=== PATIENT | female | born 1995 | race Caucasian/White ===

== ENCOUNTER 2017-03-12 15:44 | Emergency (ER) | payer SELFPAY ==
[2017-03-12] MEDS ORDERED: KETOROLAC TROMETHAMINE 30 MG/ML VIAL IV ONE (16:17)
[2017-03-12] MEDS ORDERED: NORMAL SALINE 1,000 ML IV ONE (16:17)
--- NOTE | 2017-03-12 16:18 | ERNOTE ---
Abdominal HPI - Narrative Date of Service: 03/12/17 - General Chief Complaint: Abdominal Pain Time Seen by Provider: 03/12/17 16:06 Source: patient, family, RN notes reviewed Exam Limitations: no limitations - Immun/Allergies/Home Medications Immunizatons: IMMUNIZATION HX Immunizations Up to Date Yes History of Influenza Vaccine No Hx Pneumococcal Vaccination No Allergies/Adverse Reactions: Allergies No Known Allergies Allergy (Verified 03/12/17 16:02) Home Medications: HOME MEDICATIONS NK [No Home Medication] 03/12/17 [Last Taken Unknown] - History of Present Illness Narrative: 21 y/o female brought the ED by her mother for abdominal pain that began earlier this afternoon. Her pain is located across her lower abdomen. She denies any associated symptoms. She had been feeling fine until this started today. She reports that it is just like the pain that she had approximately a year ago when she had a pelvic mass that required surgery. She had her right fallopian tube removed and a lysis of adhesions. Date (Duration): 03/12/17 Time (Timing): 14:15 Timing: constant Quality: severe, aching Activities at Onset: none Associated Symptoms: Absent: headache, back pain, diaphoresis, fever/chills, heartburn, nausea, vomiting, shortness of breath, swelling/mass in abdomen Prior Abdominal Problems: Present: similar symptoms Prior Treatment: Absent: recently seen Review of Systems - Review of Systems Constitutional: Absent: recent illness, fever, chills EYE: Present: no symptoms reported ENT: Present: no symptoms reported Respiratory: Absent: shortness of breath, cough Cardiology: Absent: chest pain, palpitations Gastrointestinal/Abdominal: Present: abdominal pain. Absent: nausea, vomiting, diarrhea, constipation Genitourinary: Absent: dysuria, hematuria Musculoskeletal: Absent: back pain, neck pain Skin: Absent: rash, lesions, lumps Neurological: Absent: headache, dizziness/light-headedness Endocrine: Present: no symptoms reported Hematologic/Lymphatic: Present: no symptoms reported Psych: Present: no symptoms reported - Patient's Past Medical History Patient History - Medical: Anemia Patient History - Cardiac/Respiratory: Pneumonia Patient History - Cancer: No Hx of Cancer Patient History - Surgical Procedures: Other - Left knee arthroscopy, diagnostic laproscopy 04/07/16-ruptured r ovarian cyst, r-adenxal/pelvic abscess , r hydrosalpinx, r ovarian cyst, Orthopedic Patient History - Other: None LMP (Calendar): 02/14/17 - Family History Mother Family History - Medical: Other Family History - Cardiac/Respiratory: Other - Social History Living Situations: home Abuse History: No History of abuse Psych History: No pertinent hx Does anyone smoke in the home?: Yes Smoking Status: Current every day smoker Alcohol Use: none Drug Use: none - Immunizations Immunizations Up to Date: Yes Hx Pneumococcal Vaccination: No History of Influenza Vaccine: No Physical Exam - Physical Exam General Appearance: Present: alert, mild distress, thin Neck: Present: normal inspection, nontender, supple Respiratory: Present: no respiratory distress, normal breath sounds, no accessory muscle use, lungs clear Cardiovascular/Chest: Present: regular rate, rhythm, no murmur, normal peripheral pulses Gastrointestinal/Abdominal: Present: normal bowel sounds, nondistended, soft, tenderness - severe, lower abdomen, guarding. Absent: rebound, mass, hernia Back Exam: Present: normal inspection, no CVA tenderness Extremity Exam: Present: normal inspection, normal range of motion Neurological Exam: Present: alert, oriented, no motor/sensory deficits, other - flat affect. Absent: normal mood/affect Skin Exam: Present: normal color, warm/dry Lymphatic Exam: Present: no adenopathy ED Progress - Results and Orders Patient's Lab Results:: I have reviewed the patient's lab results. - Vital Signs Patient's Vital Signs:: I have reviewed the patient's vital signs. Vital Signs: Vital Signs 03/12/17 15:55 Temperature 36.6 C Pulse Rate 90 Respiratory 16 Rate Blood Pressure 106/62 O2 Sat by Pulse 99 Oximetry - CT/Ultrasound CT/Ultrasound Narrative: CT Abdomen/Pelvis W/C * Findings: Lung bases: Lung bases are clear. ABDOMEN/PELVIS: Liver: Unremarkable. Spleen: Unremarkable. Pancreas: Unremarkable. Gallbladder: Unremarkable. Adrenal glands: Unremarkable. Kidneys: Unremarkable. Normal course and caliber of the ureters. No filling defect within the opacified portions of the ureters. Bowel: Reflux of contrast material up the distal esophagus; correlate for gastroesophageal reflux. No evidence of bowel obstruction. Appendix is not visualized. Scattered stool retention. Pelvic structures: In the right adnexa there is a 3.6 cm AP by 3.7 cm transverse rim-enhancing fluid density structure with surrounding fluid. The left adnexa is unremarkable. There is trace air in the vaginal vault; correlate for recent instrumentation. The pelvic structures are otherwise unremarkable.. Vascular structures: Normal caliber aorta. Lymphadenopathy: No significant lymphadenopathy. No pneumoperitoneum. No hemoperitoneum. Osseous structures: No acute osseous findings. Abdominal wall: Intact. IMPRESSION: Right adnexal cystic mass, as above. In the setting of an elevated white count, findings are concerning for underlying tubo-ovarian abscess. The left adnexa is unremarkable. Additional findings and comments are as above. Electronically signed by Vidal Hidalgo D.O.. - Progress/Reassessment Chief Complaint: Abdominal Pain Progress:: Improved Progress Note-Subjective: 03/12/17 17:24 Some improvement in pain with Toradol. Appears more comfortable. Labwork essentially unremarkable. WBC is 10.8 and inflammatory markers are normal. CT ordered. Patient denies any nausea currently. She feels like she is able to tolerate oral contrast. Plan - Plan Plan: Discussed CT findings with patient and her mother. She is feeling a lot better after the Toradol and has not required any additional pain medication. CT showed a right adnexal mass. Patient is afebrile with a WBC of 10.9. At this point, it is likely the mass is a simple ovarian cyst. Discussed short term follow up with [facility], or return to the ED if symptoms worsen. Patient agreeable with plan. Departure - Departure Clinical Impression: Ovarian cyst Disposition: Home Follow Up Needed Condition: Stable Instructions: Ovarian Cyst, [id number] Additional Instructions: Ibuprofen for pain - 600 mg every 6 hours as needed, take with food Can also take Tylenol Using a heating pad may also help Contact Dr. Elena next week for follow-up, but return to ER if symptoms worsen (fever, vomiting, worsening pain, etc.) Referrals: Damien Elena DO [Staff Physician] -
[2017-03-12 16:39] LABS: Hematocrit 39.7 % (37.0-47.0); Hemoglobin 12.5 gm/dL (12.5-16.0); Mean Cell Volume 84.1 fl (78-100); Mean Corpuscular Hemoglobin 26.5 pg (27-31); Mean Corpuscular Hgb Conc 31.5 g/dl (32-36); Neutrophil # 7.9 K/mm3 (1.3-6.0); Platelet Count 270 K/mm3 (150-450); Red Blood Count 4.72 M/mm3 (4.2-5.4); Red Cell Distribution Width 15.3 % (11.5-14.0); White Blood Count 10.8 K/mm3 (4.0-10.5)
[2017-03-12 16:46] LABS: ALT 14 U/L (19-67); AST 12 U/L (0-48); Alkaline Phosphatase * 71 U/L (50-170); Anion Gap 11.8 mmol/L (6.8-13.8); BUN/Creatinine Ratio 9.5 (9.0-21.6); Bilirubin, Total 0.4 mg/dL (0.0-1.1); Blood Urea Nitrogen 6 mg/dL (3-23); Ca. Corrected For Albumin 8.4 mg/dL (8.4-10.2); Calcium * 8.7 mg/dL (7.9-10.9); Carbon Dioxide 28.9 mmol/L (24-32.6); Chloride 105 mmol/L (97-106); Glucose * 88 mg/dL (70-110); Potassium 3.7 mmol/L (3.4-4.6); Sodium 142 mmol/L (132-142); Total Protein 7.5 gm/dL (6.2-8.2)
[2017-03-12] MEDS ORDERED: KETOROLAC TROMETHAMINE 30 MG/ML VIAL ONE (16:49)
[2017-03-12 16:52] LABS: Urine Appearance Clear; Urine Color Yellow
[2017-03-12 16:53] LABS: Urine Bacteria 1+; Urine Bilirubin Negative (NEGATIVE); Urine Blood Negative /ul (NEGATIVE); Urine Ketone Negative (NEGATIVE); Urine Nitrite Negative (NEGATIVE); Urine Protein Negative (NEGATIVE); Urine RBC None Seen /hpf (0-5); Urine Specific Gravity 1.015 SP.GR. (1.005-1.010); Urine Urobilinogen Normal (NORMAL); Urine WBC 0-5 /hpf (0-5)
[2017-03-12] MEDS ORDERED: DIATRIZOATE MEGLU/DIATRIZO SOD 30 ML BTL PO ONE (17:28)
[2017-03-12] MEDS ORDERED: DIATRIZOATE MEGLU/DIATRIZO SOD 30 ML BTL ONE (17:29)
[2017-03-12] MEDS ORDERED: ONDANSETRON HCL/PF 2 MG/ML VIAL ONE (18:29)
[2017-03-12] MEDS ORDERED: ONDANSETRON HCL/PF 2 MG/ML VIAL IV ONE (18:30)
[2017-03-12 20:52] VITALS: BP 105/68
== END 2017-03-12 20:40 | disposition home or self-care (01) ==
LOC: ER 15:44
DX: N83.209 Unspecified ovarian cyst, unspecified side (principal); Z72.0 Tobacco use
CPT/HCPCS: 36415; 74177; 80053; 81001; 84703; 85025; 85652; 86140; 96374; 96375; 99284; J2405

== ENCOUNTER 2018-10-16 10:37 | Inpatient (IN) ==
[2018-10-16] MEDS ORDERED: OXYTOCIN/DEXTROSE 5%-WATER 30 UNITS/500 ML BAG IV ONE (18:57)
[2018-10-16] MEDS ORDERED: RINGER'S SOLUTION,LACTATED 1,000 ML IV ONE (18:57)
[2018-10-16] MEDS ORDERED: ONDANSETRON HCL/PF 2 MG/ML VIAL IV PRN (18:57)
[2018-10-16 19:50] LABS: Cocaine Ur Negative (NEGATIVE); Urine Barbiturate Negative (NEGATIVE); Urine Benzodiazepines Negative (NEGATIVE); Urine Opiates Negative (NEGATIVE); Urine PCP Negative (NEGATIVE); Urine THC Negative (NEGATIVE)
[2018-10-16] MEDS: MISOPROSTOL 100 MCG TABLET VG PRN (20:23)
[2018-10-16] MEDS: DEXTROSE 5%-LACTATED RINGERS 1,000 ML IV PRN (22:20)
[2018-10-17] MEDS: DEXTROSE 5%-LACTATED RINGERS 1,000 ML IV PRN ×2 (03:20→21:56)
[2018-10-17] MEDS: MISOPROSTOL 100 MCG TABLET VG PRN ×3 (05:30→09:13)
--- NOTE | 2018-10-17 11:58 | HP ---
Chief Complaint - Chief Complaint Date of Service: 10/16/18 Time of Service: 19:00 Chief Complaint: elective induction of labor History of Present Illness: 22 yo at 39 2/7 weeks presents to L&D for elective induction of labor. This complicated by anemia, and HSV seropositive (no outbreaks, on Valtrex prophylaxis). 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 2013 & 2017. Fracture of clavicle Onset Date: ~04/2012 left Hydrosalpinx Onset Date: ~04/06/16 right Meningitis Onset Date: ~01/2015 viral-[facility] Ovarian cyst Onset Date: ~04/06/16 right Pneumonia Onset Date: ~08/2014 Wrist fracture, left Onset Date: ~02/2007 Surgical History: Surgical History (Last Reviewed 10/17/18 @ 12:08 by aDmien Elena DO) History of arthroscopic knee surgery Onset Date: ~02/09/14 History of ovarian cystectomy Onset Date: ~04/06/16 right History of salpingectomy Onset Date: ~04/06/16 right Status post laparoscopy Onset Date: ~04/06/16 drainage of right adnexal abscess, lysis of adhesions Family History: Family History (Last Reviewed 10/17/18 @ 12:08 by Damien Elena DO) Father Thyroid disease Mother Hypertension Hyperlipemia Aortic Iliac Bypass Blood clot in vein Social History: Preferred Language Z[place]ian Do you have any shinto or No cultural preference? Smoking Status Former smoker Abuse History No History of abuse Psych History No pertinent hx (Last Updated 10/10/18 @ 15:07 by Damien Elena DO) No Social History Section defined Review Of Systems (GEN) - Review of Systems Generalized/Overall Review: Present: No Symptoms Reported EENTM: Present: No Symptoms Reported, Throat Pain Cardiac: Present: No Symptoms Reported Abdominal: Present: No Symptoms Reported Genitourinary: Present: No Symptoms Reported Musculoskeletal: Present: No Symptoms Reported Neurological: Present: No Symptoms Reported Skin: Present: No Symptoms Reported Endocrine: Present: No Symptoms Reported Immunizations: IMMUNIZATION HX Immunizations Up to Date Yes History of Influenza Vaccine Yes Hx Pneumococcal Vaccination No Allergies/Adverse Reactions: Allergies Allergy/AdvReac Type Severity Reaction Status Date / Time No Known Allergies Allergy Verified 10/10/18 14:20 Home Medications: HOME MEDICATIONS [id number] 400 mcg-om3 35 mg-dha 25 mg-epa 5 mg-fish oil chewable tablet 2 tab PO .QD tab 03/17/18 [Last Taken 10/16/18] ferrous sulfate 325 mg (65 mg iron) tablet 325 mg PO DAILY #30 tab 07/20/18 [Last Taken 10/16/18] valacyclovir 1 gram tablet 1,000 mg PO DAILY #30 tab 09/14/18 [Last Taken 10/16/18] Exam - Exam Vital Signs: Vital Signs - Last Taken Temp 36.6 C 10/16/18 19:17 Pulse 100 10/16/18 19:17 Resp 16 10/16/18 19:17 BP 116/72 10/16/18 19:17 Pulse Ox 98 10/16/18 19:17 Constitutional: Present: Alert, Oriented x3, Cooperative, No distress ENT Exam: Present: hearing grossly normal Respiratory: Present: lungs clear, no respiratory distress Cardiovascular/Chest: Present: regular rate, rhythm, no edema Abdomen: Present: soft, nontender, no rebound tenderness, other - gravid /Rectal: Present: Other - cervix cl/40/-2 Extremity: Present: no pedal edema, no calf tenderness Skin Exam: Present: normal color, warm/dry, no cyanosis Neurologic: Present: alert, normal mood/affect, oriented x 3 Appearance: Present: appropriate appearance, appropriate insight Eye contact: Present: cooperative, good eye contact, normal speech Thoughts: Present: normal thought pattern Diagnostic Studies: Laboratory Results Urine Opiates Screen Negative (NEGATIVE) 10/16/18 19:17 Barbiturate Screen Negative (NEGATIVE) 10/16/18 19:17 Ur Phencyclidine Scrn Negative (NEGATIVE) 10/16/18 19:17 Urine Amphetamine Negative (NEGATIVE) 10/16/18 19:17 U Benzodiazepines Scrn Negative (NEGATIVE) 10/16/18 19:17 Urine Cocaine Screen Negative (NEGATIVE) 10/16/18 19:17 Urine Marijuana (THC) Negative (NEGATIVE) 10/16/18 19:17 Assessment/Plan - Assessment/Plan (1) Encounter for elective induction of labor Assessment: Admit for cytotec cervical ripening/induction of labor. R/b/a to elective induction of labor discussed with patient and family. She desires to proceed with induction. Problem: Acute (2) Anemia Problem: Acute Qualifiers: Anemia type: iron deficiency Iron deficiency anemia type: inadequate dietary iron intake Qualified Code(s): D50.8 - Other iron deficiency anemias (3) HSV-2 seropositive Problem: Acute
--- NOTE | 2018-10-17 12:02 | PN ---
Progess Note - Interim Date: 10/17/18 Time: 11:58 - seen at 8:30 this a.m. Narrative: 10/17/18 11:58 Patient feeling only a few of her contractions Vital signs stable. Status post Cytotec 12.5 mg 2 doses FHT: 130 baseline, good [id number] variability with accelerations, occasional moderate variable decelerations through the evening. Contractions q 1-4 min Cervix: Dimple/40/-2, failed attempt at Mejia bulb placement Impression: Intrauterine at 39-2/7 weeks elective induction of labor Plan: We'll continue with Cytotec until able to insert a Mejia bulb.
--- NOTE | 2018-10-17 16:44 | PN ---
Progess Note - Interim Date: 10/17/18 Time: 16:42 Narrative: 10/17/18 16:42 Patient starting to feel contractions mildly Vital signs stable. Status post 3 doses of Cytotec 12.5 mg per vagina FHT: 140 baseline, reassuring Contractions q 2-3 min Cervix: 1/50/-3, Mejia bulb placed within the cervical canal and filled with 60 mL of normal saline Impression: Intrauterine at 39-2/7 weeks elective induction of labor Plan: Continue present plan
[2018-10-17] MEDS ORDERED: BUPIVACAINE HCL/0.9 % NACL/PF 250 ML EP PRN (19:48)
[2018-10-17] MEDS ORDERED: ONDANSETRON HCL/PF 2 MG/ML VIAL IV PRN (19:48)
[2018-10-17] MEDS ORDERED: NALOXONE HCL 1 MG/1 ML SYRG IV PRN (19:48)
[2018-10-17] MEDS ORDERED: fentaNYL CITRATE/PF 50 MCG/ML AMPUL IT SCH (20:00)
--- NOTE | 2018-10-17 20:26 | ANES ---
Anesthesia Pre Procedure Eval Vitals/Labs: Last Vital Signs Temp 36.6 C 10/16/18 19:17 Pulse 100 10/16/18 19:17 Resp 16 10/16/18 19:17 BP 116/72 10/16/18 19:17 Pulse Ox 98 10/16/18 19:17 HOME MEDICATIONS [id number] 400 mcg-om3 35 mg-dha 25 mg-epa 5 mg-fish oil chewable tablet 2 tab PO .QD tab 03/17/18 [Last Taken 10/16/18] ferrous sulfate 325 mg (65 mg iron) tablet 325 mg PO DAILY #30 tab 07/20/18 [Last Taken 10/16/18] valacyclovir 1 gram tablet 1,000 mg PO DAILY #30 tab 09/14/18 [Last Taken 10/16/18] Allergies/Adverse Reactions: Allergies Allergy/AdvReac Type Severity Reaction Status Date / Time No Known Allergies Allergy Verified 10/10/18 14:20 - Planned Procedure Planned Procedure: INDUCTION Medication List Reviewed:: Yes Allergies Verified: Yes Medical History (Last Reviewed 10/17/18 @ 20:24 by Bert Qureshi CRNA) 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 2013 & 2018. Fracture of clavicle Onset Date: ~04/2012 left Hydrosalpinx Onset Date: ~04/06/16 right Meningitis Onset Date: ~01/2015 viral-[facility] Ovarian cyst Onset Date: ~04/06/16 right Pneumonia Onset Date: ~08/2014 Wrist fracture, left Onset Date: ~02/2007 Surgical History (Last Reviewed 10/17/18 @ 20:24 by Bert Qureshi CRNA) History of arthroscopic knee surgery Onset Date: ~02/09/14 History of ovarian cystectomy Onset Date: ~04/06/16 right History of salpingectomy Onset Date: ~04/06/16 right Status post laparoscopy Onset Date: ~04/06/16 drainage of right adnexal abscess, lysis of adhesions Family History (Last Reviewed 10/17/18 @ 20:24 by Bert Qureshi CRNA) Father Thyroid disease Mother Hypertension Hyperlipemia Aortic Iliac Bypass Blood clot in vein - Family Anesthesia History Family History:: no untoward family reactions to anesthesia, no familial bleeding tendencies, no family history of clotting disorders, no family history of premature - Airway/Neck/Teeth Within Normal Limits:: Yes Teeth Condition: intact Neck Exam: full range of motion Mallampatti Score: 2 Thyromental (T-M) distance: > 6 cm Mandibulo Hyoid distance: > 3 cm - Respiratory Respiratory Physical: lungs clear Sleep Apnea currently treated: No Sleep Apnea by current assessment: No - Cardiovascular Tolerate Activity: Fair Heart Sounds: S1 & S2, Regular - Anesthesia Assessment and Plan ASA Class: PS, II, E Anesthesia Type Plan: Epidural - CSE for labor amalgesia
[2018-10-17] MEDS ORDERED: LIDOCAINE HCL/EPINEPHRINE 20 ML VIAL ONE (20:33)
--- NOTE | 2018-10-17 20:44 | ANES ---
Post Anesthesia Discharge - Transfer of Care Transfer of Care handoff given to nurse: Yes - Discharge from PACU Discharge from PACU when meets criteria: Yes - Comfortable after CSE.
--- NOTE | 2018-10-17 20:47 | ANES ---
Anesthesia Procedure Note Procedure Note: ANESTHESIA PROCEDURE NOTE Date of Procedure: 10/17/2018 Time of procedure: 2024 p.m. Performed by: Bert Qureshi CRNA, MSN Adult Caregiver: Victorina Ro. Preprocedure diagnosis: Active labor, labor pain. Post procedure diagnosis: Same. Procedure:Epidural for labor analgesia L3 4. Indications: Labor pain. Findings: See below. Details of the procedure: The patient was placed on the side of the bed in sitting positionand prepped with DuraPrep then draped in a sterile fashion. Lidocaine 1% was infiltrated to the skin and subcutaneous tissues at the level of the L3 4 interspace. An 18-gauge Touhy needle was used to approach the epidural space with loss of resistance technique. Once loss of resistance was achieved a 27-gauge spinal needle was passed through the epidural needle and CSF was contacted. After CSF returned, 20 mcg of fentanyl was injected in the spinal needle was removed the epidural catheter was then threaded approximately 4 cm in the epidural needle was removed. The catheter was taped in place and after careful aspiration 3 mL of 1.5% lidocaine with 1-200,000 epinephrine was injected without change in maternal heart rate or sensorium. . EBL: Minimal. Fluids: N/A. Specimen: N/A. Post procedure condition: The patient tolerated the procedure well with good r elief. No complications were noted. Thank you for this consultation. Bert Qureshi CRNA, MSN
--- NOTE | 2018-10-17 20:53 | ANES ---
Post Anesthesia Assessment - Vital Signs Vitals: Last Vital Signs Temp 36.8 C 10/17/18 20:46 Pulse 76 10/17/18 20:46 Resp 14 10/17/18 20:46 BP 103/57 10/17/18 20:46 Pulse Ox 100 10/17/18 20:46 Airway Patency: Normal - Mental Status Level Of Consciousness: Awake, Alert, Appropriate - Pain Level Pain Score: 0 - N/V Assessment Nausea/Vomiting Presence: None Dehydration:: No
[2018-10-18] MEDS: DEXTROSE 5%-LACTATED RINGERS 1,000 ML IV PRN (05:35)
--- NOTE | 2018-10-18 06:45 | PN ---
Progess Note - Interim Date: 10/18/18 Time: 06:44 Narrative: 10/18/18 06:44 Patient feeling lots of pressure Vital signs stable. Pitocin at 2 mu/min. FHT: 140 baseline, variables with contractions Contractions q 2-3 min Cervix: Complete and pushing Impression: Intrauterine at 39-3/7 weeks induction of labor Plan: Anticipate normal spontaneous vaginal delivery within the next 30 minutes
[2018-10-18] MEDS ORDERED: GLYCERIN/WITCH HAZEL LEAF 40 APPL BOX TP PRN (07:25)
[2018-10-18] MEDS ORDERED: BENZOCAINE/MENTHOL 81 SPRAY CAN TP PRN (07:25)
[2018-10-18] MEDS ORDERED: SENNOSIDES 8.6 MG TABLET PO PRN (07:25)
[2018-10-18] MEDS ORDERED: OXYTOCIN/DEXTROSE 5%-WATER 30 UNITS/500 ML BAG IV ONE (07:25)
[2018-10-18] MEDS ORDERED: BISACODYL 10 MG SUPP.RECT RC PRN (07:25)
[2018-10-18] MEDS ORDERED: HYDROCORTISONE 30 APPL TUBE TP PRN (07:25)
[2018-10-18] MEDS ORDERED: oxyCODONE HCL/ACETAMINOPHEN 1 TAB TABLET PO PRN (07:25)
--- NOTE | 2018-10-18 07:38 | OR ---
Operative Report - Dictated Report Narrative: Spontaneous vaginal delivery of viable female at 0651 on 10/18/2018 with Apgars 8 and 9, weighing 2883 g in cephalic presentation with right hand at chin and tight nuchal cord, crying when placed on mother's abdomen. Cord clamping delayed approximately 1 minute Placenta delivered complete, intact, with three vessel cord Estimated blood loss: 100 mL Anesthesia: epidural Lacerations: Left vaginal sulcus tear with second-degree vaginal laceration repaired with 3-0 Vicryl Rapide.
[2018-10-18] MEDS: DOCUSATE SODIUM 100 MG CAPSULE PO SCH ×2 (10:17→23:21)
[2018-10-18] MEDS: PRENATAL VITS96/IRON FUM/FOLIC 1 TAB TABLET PO SCH (10:17)
[2018-10-18] MEDS: FERROUS SULFATE 325 MG TABLET PO SCH (10:17)
[2018-10-18] MEDS: IBUPROFEN 800 MG TABLET PO PRN ×2 (11:55→23:21)
[2018-10-18] MEDS: oxyCODONE HCL/ACETAMINOPHEN 1 TAB TABLET PO PRN ×2 (11:55→23:21)
--- NOTE | 2018-10-19 11:41 | PN ---
Subjective - Date and Time Seen Date: 10/19/18 Time: 11:40 Objective - Vitals Vitals: Last Vital Signs Temp 36.4 C 10/19/18 08:08 Pulse 70 10/19/18 08:08 Resp 18 10/19/18 08:08 BP 97/54 10/19/18 08:08 Pulse Ox 98 10/19/18 08:08 Patient denies complaints. Tried to breast-feed but decided to bottle feed Lochia wnl Abdomen - soft, nontender Uterus - firm, at umbilicus - 1 No calf tenderness Impression: day #1 - s/p spontaneous vaginal delivery. Plan: Continue routine care Cauti Physician Documentation - Urinary Catheter Management Urethral (Mejia) Date of Insertion: 10/17/18 Time of Insertion: 21:30 Assessment/Plan - Problems/Diagnosis (1) Encounter for elective induction of labor Problem: Acute (2) Anemia Problem: Acute Qualifiers: Anemia type: iron deficiency Iron deficiency anemia type: inadequate dietary iron intake Qualified Code(s): D50.8 - Other iron deficiency anemias (3) HSV-2 seropositive Problem: Acute
[2018-10-19] MEDS: FERROUS SULFATE 325 MG TABLET PO SCH (12:40)
[2018-10-19] MEDS: PRENATAL VITS96/IRON FUM/FOLIC 1 TAB TABLET PO SCH (12:41)
[2018-10-19] MEDS: DOCUSATE SODIUM 100 MG CAPSULE PO SCH ×2 (12:45→21:49)
[2018-10-19] MEDS: IBUPROFEN 800 MG TABLET PO PRN (21:50)
[2018-10-20 08:18] VITALS: BP 131/74
[2018-10-20] MEDS: DOCUSATE SODIUM 100 MG CAPSULE PO SCH (10:08)
[2018-10-20] MEDS: PRENATAL VITS96/IRON FUM/FOLIC 1 TAB TABLET PO SCH (10:08)
[2018-10-20] MEDS: FERROUS SULFATE 325 MG TABLET PO SCH (10:08)
--- NOTE | 2018-10-20 13:31 | PN ---
Subjective - Date and Time Seen Date: 10/20/18 Time: 13:30 Objective - Vitals Vitals: Last Vital Signs Temp 36.3 C 10/20/18 07:50 Pulse 70 10/20/18 07:50 Resp 20 10/20/18 07:50 BP 131/74 10/20/18 07:50 Pulse Ox 100 10/20/18 07:50 Patient denies complaints. Bottle feeding Lochia wnl Abdomen - soft, nontender Uterus - firm, at umbilicus - 2 No calf tenderness Impression: day #2 - s/p spontaneous vaginal delivery. Plan: Routine discharge instructions Cauti Physician Documentation - Urinary Catheter Management Urethral (Mejia) Date of Insertion: 10/17/18 Time of Insertion: 21:30 Assessment/Plan - Problems/Diagnosis (1) Encounter for elective induction of labor Problem: Acute (2) Anemia Problem: Acute Qualifiers: Anemia type: iron deficiency Iron deficiency anemia type: inadequate dietary iron intake Qualified Code(s): D50.8 - Other iron deficiency anemias (3) HSV-2 seropositive Problem: Acute
--- NOTE | 2018-10-31 15:18 | PN ---
Progess Note - Interim Date: 10/31/18 Time: 15:17 History for MU Definition: * The number of deliveries resulting in a live the patient experienced prior to current hospitalization * The previous delivery of live twins or any live multiple gestation is considered one live event. *If primagravida or nulliparous is documented select zero for the number of previous live births. Live Events: 0
== END 2018-10-20 12:30 | disposition home or self-care (01) | DRG 806 ==
LOC: OB 18:51
PROVIDERS: ADMIT Obstetrics & Gynecology; ATTEND Obstetrics & Gynecology
CPT/HCPCS: 59025; 80307